=== PATIENT | male | born 1955 | race Caucasian/White ===

== ENCOUNTER 2020-03-15 20:21 | Emergency (ER) | payer SELFPAY ==
[~2020-03-15] VITALS: Ht 162.6 cm; Wt 82.0 kg
--- NOTE | 2020-03-15 20:29 | NUR ---
PATIENT STATED THAT HE HAS A HISTORY OF WOUND COMPLICATIONS INCLUDING MRSA, AND CELLULITIS. PATIENT HAS MULTIPLE BANDAIDS ON RIGHT AND LEG LEGS. AMBULATORY WITH STEADY GAIT TO ROOM.
[2020-03-15] MEDS ORDERED: PIPERACILLIN/TAZO/PMX 3.375GM 50 ML IV ONE (21:00)
[2020-03-15] MEDS ORDERED: SODIUM CHLORIDE 0.9% 1,000ML IVBOLUS ONE (21:00)
[2020-03-15] MEDS ORDERED: ONDANSETRON 2MG/ML, 2ML IVPush ONE (21:00)
[2020-03-15] MEDS ORDERED: VANCOMYCIN PER PHARMACY MC PRN (21:00)
[2020-03-15] MEDS ORDERED: PLEASE ENTER ALLERGIES MC SCH (21:00)
[2020-03-15] MEDS ORDERED: MORPHINE SULFATE 4 MG/ML, 1ML ONE ×2 (21:21→22:38)
[2020-03-15] MEDS ORDERED: ONDANSETRON 2MG/ML, 2ML ONE (21:21)
[2020-03-15] MEDS: MORPHINE SULFATE 4 MG/ML, 1ML IVPush PRN ×2 (21:25→22:52)
--- NOTE | 2020-03-15 21:38 | NUR ---
Pt medicated for pain. Anxious affect, family at bedside for reassurance. Fluids hanging. Lab at bedside for 2nd set of cultures.
[2020-03-15] MEDS ORDERED: PIPERACILLIN/TAZO/PMX 3.375GM 50 ML ONE (21:52)
--- NOTE | 2020-03-15 21:57 | NUR ---
BEDSIDE REPORT RECEIVED FROM ANGELIQUE BLAS. ASSUMED CARE OF PT. PT RESTING ON GURNEY, CONSTANTLY TOUCHING THE WOUND ON HIS LEG. PT ASKED TO STOP TOUCHING THE WOUND. NSR ON THE MONITOR. NO ECTOPY NOTED. ALL VITALS STABLE. PT DENIES ANY NEEDS AT THIS TIME
[2020-03-15 22:00] LABS: BASOPHILS # (AUTO) 0.05 x10^3/uL (0-0.1); BASOPHILS % (AUTO) 1 % (0-1); EOSINOPHILS # (AUTO) 0.37 x10^3/uL (0-0.4); EOSINOPHILS % (AUTO) 4 % (1-7); LYMPHOCYTES # (AUTO) 2.95 x10^3/uL (1-3.4); LYMPHOCYTES % (AUTO) 31 % (22-44); MD NO; MEAN CORPUSCULAR HEMOGLOBIN 31.3 pg (27.5-34.5); MEAN CORPUSCULAR VOLUME 94.8 fL (81-97); MEAN PLATELET VOLUME 8.1 fL (7.4-10.4); MONOCYTES # (AUTO) 0.65 x10^3/uL (0.2-0.8); MONOCYTES % (AUTO) 7 % (2-9); NEUTROPHILS # (AUTO) 5.57 x10^3/uL (1.8-6.8); NEUTROPHILS % (AUTO) 58 % (42-75); PLATELET COUNT 323 x10^3/uL (130-400); RED BLOOD COUNT 3.99 x10^6/uL (4.38-5.82); RED CELL DISTRIBUTION WIDTH 14.1 % (9.4-14.8)
[2020-03-15] MEDS ORDERED: VANCOMYCIN 1,600 MG in SODIUM CHLORIDE 0.9% 250 ML IV ONE (22:00)
--- NOTE | 2020-03-15 22:06 | NUR ---
PRECEPTING RN: REPORT TO ANGELIQUE CHURCHILL WHO ASSUMED CARE OF PT.
[2020-03-15 22:26] LABS: ALBUMIN 3.2 g/dL (3.4-5.0); ANION GAP 5 mmol/L (5-15); CALCIUM 9.1 mg/dL (8.5-10.1); CHLORIDE 109 mmol/L (98-107); CREATININE 0.94 mg/dL (0.7-1.3)
--- NOTE | 2020-03-15 22:33 | NUR ---
JAIME STARTED. PA AT BEDSIDE UPDATING PT ON POC. PT TO BE DISCHARGED AFTER ABX FINISHED. PT DENIES ANY NEEDS AT THIS TIME. WILL CONTINUE TO MONITOR
--- NOTE | 2020-03-15 22:52 | NUR ---
PT MEDICATED PER EMAR, FOR PAIN. 5 RIGHTS ADDRESSED.
[2020-03-15] MEDS ORDERED: DIPHENHYDRAMINE 25 MG CAPSULE ONE (23:30)
[2020-03-15 23:35] VITALS: BP 144/85
--- NOTE | 2020-03-15 23:35 | NUR ---
PT CONTINUALLY SCRATCHING OPEN WOUND AREA ON LOWER LEG. DISCUSSED THIS WITH DR. MAC. HE ORDERED BENEDRYL FOR THE ITCHING. PT MEDICATED PER EMAR. 5 RIGHTS ADDRESSED
[2020-03-15] MEDS ORDERED: NEOSPORIN OINT. PKT 1 PACKET ONE (23:41)
[2020-03-16] MEDS ORDERED: DIPHENHYDRAMINE 25 MG CAPSULE PO ONE
--- NOTE | 2020-03-16 00:51 | NUR ---
Patient/Caregiver given discharge instructions and they have confirmed that they understand the instructions. Patient ambulatory with steady gait.
== END 2020-03-16 00:53 | disposition home or self-care (01) ==
LOC: ED 03-16 00:23
DX: L03.115 Cellulitis of right lower limb (principal)
CPT/HCPCS: 36415; 73590; 80048; 82040; 83605; 84145; 85025; 87040; 93971; 96365; 96366; 96368; 96375; 96376; 99285; J2270; J2405; J2543; J3370; J7030; J7050; Q0163

== ENCOUNTER 2020-03-17 20:00 | Emergency (ER) | payer SELFPAY ==
[~2020-03-17] VITALS: Ht 175.3 cm; Wt 82.0 kg
[2020-03-17 20:11] VITALS: BP 140/86
--- NOTE | 2020-03-17 21:01 | NUR ---
PT INSISTANT ON BEING IN ROOM WITH GIRLFRIEND.
--- NOTE | 2020-03-17 21:15 | NUR ---
ERP AT BEDSIDE
[2020-03-17] MEDS ORDERED: SULFAMETH./TRIMETHOPRIM DS 800MG/160MG TABLET ONE (21:43)
[2020-03-17] MEDS ORDERED: CEFTRIAXONE 1,000 MG ONE (21:43)
--- NOTE | 2020-03-17 21:53 | NUR ---
PT MEDICATED PER MAR
[2020-03-17] MEDS ORDERED: SULFAMETH./TRIMETHOPRIM DS 800MG/160MG TABLET PO ONE (22:00)
[2020-03-17] MEDS ORDERED: CEFTRIAXONE 1,000 MG IM ONE (22:00)
== END 2020-03-17 23:09 | disposition home or self-care (01) ==
LOC: ED 22:43
DX: L03.116 Cellulitis of left lower limb (principal); F17.200 Nicotine dependence, unspecified, uncomplicated
CPT/HCPCS: 96372; 99283; J0696

== ENCOUNTER 2020-06-02 19:03 | Inpatient (IN) | payer MEDICAID ==
[~2020-06-02] VITALS: Ht 175.3 cm; Wt 81.4 kg
--- NOTE | 2020-06-02 19:20 | NUR ---
TASK RN: PT BIB [facility] FOR RIGHT LOWER EXTREMITY SWELLING AND DISCOLORATION STARTING 3-5 DAYS AGO. PT WAS ON ABX FROM FOR TREATMENT AFTER DC FROM HOSPITAL A FEW MONTHS AGO. PT STATES LESIONS ERUPTED SUDDENLY, DENIES TRAUMA, DIMINISHED PULSES. LEFT LOWER LEG IS SIGNIFICANTLY SWOLLEN WITH DISCOLORATION ON THE CALF, MULTIPLE LESIONS NOTED, PULSES DIMINISHED ON THAT SIDE. SENSATION INTACT ON LEFT SIDE. PT SPO2/BP MONITORING IN PLACE. WCJURGEN. HELENA JULIAN AT FOR EVAL AND POC.
[2020-06-02 19:29] LABS: BASOPHILS # (AUTO) 0.09 x10^3/uL (0-0.1); BASOPHILS % (AUTO) 1 % (0-1); EOSINOPHILS # (AUTO) 0.36 x10^3/uL (0-0.4); EOSINOPHILS % (AUTO) 3 % (1-7); LYMPHOCYTES % (AUTO) 33 % (22-44); MD NO; MEAN CORPUSCULAR HEMOGLOBIN 31.6 pg (27.5-34.5); MEAN CORPUSCULAR HGB CONC 33.5 g/dL (33.2-36.2); MEAN CORPUSCULAR VOLUME 94.1 fL (81-97); MEAN PLATELET VOLUME 7.3 fL (7.4-10.4); MONOCYTES # (AUTO) 0.73 x10^3/uL (0.2-0.8); MONOCYTES % (AUTO) 7 % (2-9); NEUTROPHILS # (AUTO) 6.23 x10^3/uL (1.8-6.8); NEUTROPHILS % (AUTO) 56 % (42-75); PLATELET COUNT 281 x10^3/uL (130-400); RED BLOOD COUNT 4.05 x10^6/uL (4.38-5.82); RED CELL DISTRIBUTION WIDTH 13.9 % (9.4-14.8)
[2020-06-02 19:42] LABS: ALANINE AMINOTRANSFERASE 21 U/L (12-78); ANION GAP 8 mmol/L (5-15); CHLORIDE 109 mmol/L (98-107)
[2020-06-02 19:45] LABS: ALKALINE PHOSPHATASE 96 U/L (45-117); BILIRUBIN,TOTAL 0.3 mg/dL (0.2-1.0)
[2020-06-02] MEDS ORDERED: CEFTRIAXONE PMX 1GM/50ML 50 ML ONE ×2 (20:19→20:34)
[2020-06-02] MEDS ORDERED: VANCOMYCIN PER PHARMACY MC ONE (20:30)
[2020-06-02] MEDS ORDERED: CEFTRIAXONE PMX 1GM/50ML 50 ML IV ONE (20:30)
[2020-06-02] MEDS ORDERED: VANCOMYCIN 2,000 MG in SODIUM CHLORIDE 0.9% 500 ML IV ONE (20:30)
--- NOTE | 2020-06-02 20:42 | NUR ---
ALANA RN: ATTEMPTED IV X2. UNABLE TO OBTAIN ACCESS. PT CURSING AND YELLING AT STAFF. REFUSING ANOTHER ATTEMPT AT THIS TIME. PRIMARY RN AWARE.
[2020-06-02] MEDS ORDERED: MORPHINE SULFATE 4 MG/ML, 1ML IVPush PRN ×2 (21:30→22:30)
[2020-06-02] MEDS ORDERED: ONDANSETRON 2MG/ML, 2ML IVPush ONE (21:30)
[2020-06-02] MEDS ORDERED: MORPHINE SULFATE 4 MG/ML, 1ML ONE (21:39)
[2020-06-02] MEDS ORDERED: ONDANSETRON 2MG/ML, 2ML ONE (21:39)
--- NOTE | 2020-06-02 22:10 | NUR ---
PATIENT UPDATED ON PLAN OF CARE. VITAL SIGNS STABLE. NO NOTED NEEDS AT THIS TIME. PATIENT GIVEN WARM BLANKETS.
[2020-06-02] MEDS ORDERED: ONDANSETRON 2MG/ML, 2ML IVPush PRN ×2 (22:30→23:30)
[2020-06-02] MEDS ORDERED: ACETAMINOPHEN 325 MG TABLET PO PRN (23:30)
[2020-06-02] MEDS ORDERED: VANCOMYCIN PER PHARMACY MC PRN (23:30)
[2020-06-02] MEDS ORDERED: GABAPENTIN 300 MG CAPSULE PO PRN (23:30)
[2020-06-02] MEDS ORDERED: TRAZODONE 50MG TABLET PO PRN (23:30)
[2020-06-02] MEDS ORDERED: PROMETHAZINE 25 MG/ML, 1ML IM PRN (23:30)
[2020-06-02] MEDS ORDERED: hydrALAzine 20 MG/ML, 1ML IVPush PRN (23:30)
[2020-06-02 23:54] VITALS: BP 124/81
[2020-06-03] MEDS: ENOXAPARIN 40 MG/0.4 ML SQ SCH ×2 (00:22→21:28)
[2020-06-03] MEDS ORDERED: PHARMACOKINETIC CONSULTATION MC ONE (00:30)
[2020-06-03] MEDS ORDERED: PHARMACOKINETIC MONITORING MC PRN (00:30)
[2020-06-03] MEDS: morphine SULFATE 10 MG/ML, 1ML IVPush PRN ×5 (00:42→20:29)
[2020-06-03 01:06] VITALS: BP 120/77
[2020-06-03] MEDS: POTASSIUM CHLORIDE 20 MEQ, MAGNESIUM SULFATE 2 GM, THIAMINE 200 MG, MVI ADULT 10 ML, FO... IV SCH ×2 (01:20→20:29)
[2020-06-03 06:35] LABS: AMPHETAMINE SCREEN, URINE Positive (Negative); BARBITURATE SCREEN, URINE Negative (Negative); BENZODIAZEPINE SCREEN, URINE Negative (Negative); CANNABINOID SCREEN, URINE Positive (Negative); COCAINE SCREEN, URINE Negative (Negative); METHADONE SCREEN, URINE Negative (Negative); OPIATE SCREEN, URINE Positive (Negative)
[2020-06-03 06:43] LABS: BASOPHILS # (AUTO) 0.05 x10^3/uL (0-0.1); BASOPHILS % (AUTO) 1 % (0-1); EOSINOPHILS # (AUTO) 0.42 x10^3/uL (0-0.4); EOSINOPHILS % (AUTO) 5 % (1-7); LYMPHOCYTES # (AUTO) 2.79 x10^3/uL (1-3.4); LYMPHOCYTES % (AUTO) 32 % (22-44); MD NO; MEAN CORPUSCULAR HEMOGLOBIN 31.5 pg (27.5-34.5); MEAN CORPUSCULAR HGB CONC 33.4 g/dL (33.2-36.2); MEAN CORPUSCULAR VOLUME 94.1 fL (81-97); MEAN PLATELET VOLUME 7.6 fL (7.4-10.4); MONOCYTES # (AUTO) 0.63 x10^3/uL (0.2-0.8); MONOCYTES % (AUTO) 7 % (2-9); NEUTROPHILS # (AUTO) 4.86 x10^3/uL (1.8-6.8); NEUTROPHILS % (AUTO) 56 % (42-75); PLATELET COUNT 243 x10^3/uL (130-400); RED BLOOD COUNT 4.06 x10^6/uL (4.38-5.82); RED CELL DISTRIBUTION WIDTH 14.2 % (9.4-14.8)
[2020-06-03 06:49] LABS: ANION GAP 6 mmol/L (5-15); CALCIUM 8.2 mg/dL (8.5-10.1); CHLORIDE 113 mmol/L (98-107)
[2020-06-03 06:54] LABS: CHOL/HDL RATIO 4.5; CHOLESTEROL, TOTAL 118 mg/dL (140-239); CREATININE 0.78 mg/dL (0.7-1.3); HDL CHOL % 22 % (26-37); HDL CHOLESTEROL (DIRECT) 26 mg/dL (40-60); LDL CHOLESTEROL,CALCULATED 74 mg/dL (54-169); LDL/HDL RATIO 2.8 (0.5-3.0); TRIGLYCERIDES 92 mg/dL (50-200); VLDL CHOLESTEROL 18 mg/dL (0-25)
[2020-06-03 07:42] VITALS: BP 133/86
[2020-06-03] MEDS: INSULIN LISPRO 100 UNITS/ML, PEN SQ-INSULIN SCH ×3 (11:00→20:56)
[2020-06-03 15:20] VITALS: BP 147/87
[2020-06-03] MEDS: VANCOMYCIN 1,500 MG in SODIUM CHLORIDE 0.9% 250 ML IV SCH (16:43)
[2020-06-03] MEDS: MUPIROCIN OINT 2%, 22GM TP SCH (17:13)
[2020-06-03 20:36] VITALS: BP 137/77
[2020-06-03] MEDS: CEFTRIAXONE PMX 1GM/50ML 50 ML IV SCH (21:28)
[2020-06-04 02:35] VITALS: BP 124/79
[2020-06-04 05:57] LABS: BASOPHILS # (AUTO) 0.04 x10^3/uL (0-0.1); BASOPHILS % (AUTO) 1 % (0-1); EOSINOPHILS # (AUTO) 0.34 x10^3/uL (0-0.4); EOSINOPHILS % (AUTO) 4 % (1-7); LYMPHOCYTES # (AUTO) 2.88 x10^3/uL (1-3.4); LYMPHOCYTES % (AUTO) 37 % (22-44); MD NO; MEAN CORPUSCULAR HEMOGLOBIN 31.1 pg (27.5-34.5); MEAN CORPUSCULAR HGB CONC 32.6 g/dL (33.2-36.2); MEAN CORPUSCULAR VOLUME 95.4 fL (81-97); MEAN PLATELET VOLUME 7.4 fL (7.4-10.4); MONOCYTES # (AUTO) 0.43 x10^3/uL (0.2-0.8); MONOCYTES % (AUTO) 6 % (2-9); NEUTROPHILS # (AUTO) 4.15 x10^3/uL (1.8-6.8); NEUTROPHILS % (AUTO) 53 % (42-75); PLATELET COUNT 245 x10^3/uL (130-400); RED BLOOD COUNT 3.88 x10^6/uL (4.38-5.82); RED CELL DISTRIBUTION WIDTH 13.9 % (9.4-14.8)
[2020-06-04] MEDS: MUPIROCIN OINT 2%, 22GM TP SCH ×2 (06:01→17:53)
[2020-06-04] MEDS: morphine SULFATE 10 MG/ML, 1ML IVPush PRN ×5 (06:09→21:09)
[2020-06-04 06:16] LABS: ANION GAP 6 mmol/L (5-15); CALCIUM 7.7 mg/dL (8.5-10.1); CHLORIDE 112 mmol/L (98-107); CREATININE 0.74 mg/dL (0.7-1.3)
[2020-06-04 06:42] VITALS: BP 121/78
[2020-06-04] MEDS: INSULIN LISPRO 100 UNITS/ML, PEN SQ-INSULIN SCH ×2 (07:00→11:00)
[2020-06-04] MEDS: VANCOMYCIN 1,500 MG in SODIUM CHLORIDE 0.9% 250 ML IV SCH (10:15)
[2020-06-04 12:29] VITALS: BP 137/86
[2020-06-04] MEDS: ENOXAPARIN 40 MG/0.4 ML SQ SCH (21:09)
[2020-06-04] MEDS: CEFTRIAXONE PMX 1GM/50ML 50 ML IV SCH (21:09)
[2020-06-04 21:15] VITALS: BP 123/75
[2020-06-05 02:16] VITALS: BP 130/80
[2020-06-05] MEDS: VANCOMYCIN 1,500 MG in SODIUM CHLORIDE 0.9% 250 ML IV SCH ×2 (03:52→16:08)
[2020-06-05] MEDS: MUPIROCIN OINT 2%, 22GM TP SCH ×2 (04:23→16:08)
[2020-06-05 06:38] VITALS: BP 138/83
[2020-06-05] MEDS: morphine SULFATE 10 MG/ML, 1ML IVPush PRN ×5 (08:32→23:42)
[2020-06-05] MEDS ORDERED: BISACODYL 10 MG SUPP PR PRN (10:30)
[2020-06-05] MEDS: POLYETHYLENE GLYCOL 17 GM PACKET NG SCH (10:39)
[2020-06-05] MEDS: SENNOSIDES 8.6 MG TABLET PO SCH ×2 (12:28→19:53)
[2020-06-05 12:58] VITALS: BP 133/82
[2020-06-05 19:48] VITALS: BP 131/75
[2020-06-05] MEDS: CEFTRIAXONE PMX 1GM/50ML 50 ML IV SCH (23:30)
[2020-06-05] MEDS: ENOXAPARIN 40 MG/0.4 ML SQ SCH (23:31)
[2020-06-06 00:14] VITALS: BP 138/83
[2020-06-06] MEDS: VANCOMYCIN 1,500 MG in SODIUM CHLORIDE 0.9% 250 ML IV SCH ×2 (04:01→16:48)
[2020-06-06] MEDS: morphine SULFATE 10 MG/ML, 1ML IVPush PRN (05:57)
[2020-06-06] MEDS: MUPIROCIN OINT 2%, 22GM TP SCH ×2 (05:57→16:57)
[2020-06-06 07:08] VITALS: BP 147/78
[2020-06-06] MEDS: POLYETHYLENE GLYCOL 17 GM PACKET NG SCH (08:05)
[2020-06-06] MEDS: SENNOSIDES 8.6 MG TABLET PO SCH ×2 (08:05→20:15)
[2020-06-06] MEDS: OXYcodone IR 5MG TABLET PO PRN ×3 (13:20→22:59)
[2020-06-06] MEDS: BISACODYL 10 MG SUPP PR PRN (14:26)
[2020-06-06] MEDS: ESCITALOPRAM 10MG TABLET PO SCH (16:57)
[2020-06-06 19:47] VITALS: BP 129/82
[2020-06-06] MEDS: CEFTRIAXONE PMX 1GM/50ML 50 ML IV SCH (23:00)
[2020-06-06] MEDS: ENOXAPARIN 40 MG/0.4 ML SQ SCH (23:00)
[2020-06-07 03:50] VITALS: BP 124/75
[2020-06-07] MEDS: VANCOMYCIN 1,500 MG in SODIUM CHLORIDE 0.9% 250 ML IV SCH (04:25)
[2020-06-07] MEDS: MUPIROCIN OINT 2%, 22GM TP SCH ×2 (04:25→16:42)
[2020-06-07] MEDS: OXYcodone IR 5MG TABLET PO PRN ×4 (04:33→23:16)
[2020-06-07 06:35] VITALS: BP 135/75
[2020-06-07] MEDS: POLYETHYLENE GLYCOL 17 GM PACKET NG SCH (07:52)
[2020-06-07] MEDS: SENNOSIDES 8.6 MG TABLET PO SCH ×2 (07:52→21:00)
[2020-06-07] MEDS: ESCITALOPRAM 10MG TABLET PO SCH ×2 (07:52→09:38)
[2020-06-07 12:52] VITALS: BP 121/79
[2020-06-07 18:56] VITALS: BP 111/72
[2020-06-07] MEDS ORDERED: CLIN300C8 PO (21:51)
[2020-06-07] MEDS ORDERED: ESCI10TA PO (21:51)
[2020-06-07] MEDS ORDERED: LACT1CAP11 PO (21:51)
[2020-06-07] MEDS ORDERED: AMOX1TAB64 PO (21:51)
[2020-06-07] MEDS: ENOXAPARIN 40 MG/0.4 ML SQ SCH (23:06)
[2020-06-07] MEDS: CEFTRIAXONE PMX 1GM/50ML 50 ML IV SCH (23:06)
[2020-06-08 00:25] VITALS: BP 119/75
[2020-06-08] MEDS: MUPIROCIN OINT 2%, 22GM TP SCH (05:21)
[2020-06-08] MEDS: OXYcodone IR 5MG TABLET PO PRN ×2 (05:25→12:21)
[2020-06-08 07:10] VITALS: BP 106/67
[2020-06-08] MEDS: ESCITALOPRAM 10MG TABLET PO SCH (09:03)
[2020-06-08] MEDS: SENNOSIDES 8.6 MG TABLET PO SCH (09:03)
[2020-06-08] MEDS: POLYETHYLENE GLYCOL 17 GM PACKET NG SCH (09:03)
[2020-06-08] MEDS ORDERED: OXYC5TAB3 PO (10:58)
[2020-06-08] MEDS: BISACODYL 10 MG SUPP PR PRN (12:05)
== END 2020-06-08 15:00 | disposition home or self-care (01) | DRG 383 ==
LOC: ED 21:23 → EDIP 22:45 → 3N 23:51
PROVIDERS: ADMIT Family Medicine; ATTEND Internal Medicine
DX: L03.116 Cellulitis of left lower limb (principal); D64.9 Anemia, unspecified; E11.9 Type 2 diabetes mellitus without complications; F02.80 Dementia in other diseases classified elsewhere, unspecified severity, without behavioral disturbance, psychotic disturbance, mood disturbance, and anxiety; F10.10 Alcohol abuse, uncomplicated; F12.10 Cannabis abuse, uncomplicated; F15.20 Other stimulant dependence, uncomplicated; F17.210 Nicotine dependence, cigarettes, uncomplicated; F33.1 Major depressive disorder, recurrent, moderate; F41.9 Anxiety disorder, unspecified; G20 Parkinson's disease; G30.9 Alzheimer's disease, unspecified; I25.2 Old myocardial infarction; Z86.14 Personal history of Methicillin resistant Staphylococcus aureus infection; Z86.73 Personal history of transient ischemic attack (TIA), and cerebral infarction without residual deficits; Z91.14 Patient's other noncompliance with medication regimen; Z79.899 Other long term (current) drug therapy
CPT/HCPCS: 36415; 80048; 80053; 80061; 80202; 80307; 82962; 83036; 83605; 83735; 83880; 84145; 85025; 87040; 87806; 93306; G0378; J0696; J1650; J3370; J3411; J3475; J3480; J7042; G0475; J1815; J2270; J7040; J7050

== ENCOUNTER 2020-12-28 23:04 | Inpatient (IN) | payer MEDICAID ==
[~2020-12-28] VITALS: Ht 175.3 cm; Wt 85.0 kg
[~2020-12-28 23:04] MED LIST: AMOX1TAB64 PO; CLIN300C9 PO; ESCI10TA97 PO; LACT1CAP11 PO; OXYC5TAB98 PO
[2020-12-28] MEDS ORDERED: PROPARACAINE OPHTH 0.5%, 15ML ONE (23:20)
[2020-12-28] MEDS ORDERED: FLUORESCEIN OPHTHALMIC 1 MG STRIP ONE (23:20)
[2020-12-28] MEDS ORDERED: PROPARACAINE OPHTH 0.5%, 15ML LEFTEYE ONE (23:30)
[2020-12-28] MEDS ORDERED: FLUORESCEIN OPHTHALMIC 1 MG STRIP LEFTEYE ONE (23:30)
[2020-12-29] MEDS ORDERED: LATANOPROST OPHTH 0.005%, 2.5ML LEFTEYE ONE (01:27)
[2020-12-29] MEDS ORDERED: NEO/POLYMYX B/DEXA OPHTH OINT, 3.5GM LEFTEYE ONE (01:27)
[2020-12-29] MEDS ORDERED: DORZOLAMIDE OPHTH 2%, 10ML LEFTEYE ONE (01:27)
[2020-12-29] MEDS ORDERED: TIMOLOL OPHTH 0.5%, 5ML LEFTEYE ONE (01:28)
[2020-12-29] MEDS ORDERED: ONDANSETRON 2MG/ML, 2ML IVPush PRN (01:30)
[2020-12-29] MEDS ORDERED: AcetaZOLAMIDE INJ 500 MG IVPush ONE (01:30)
[2020-12-29] MEDS ORDERED: MORPHINE SULFATE 4 MG/ML, 1ML IVPush PRN (01:30)
[2020-12-29] MEDS ORDERED: ONDANSETRON 2MG/ML, 2ML ONE (01:52)
[2020-12-29 01:53] LABS: ALBUMIN 3.7 g/dL (3.4-5.0); ANION GAP 6 mmol/L (5-15); CALCIUM 8.9 mg/dL (8.5-10.1); CHLORIDE 111 mmol/L (98-107); CREATININE 0.98 mg/dL (0.7-1.3)
[2020-12-29] MEDS ORDERED: MORPHINE SULFATE 4 MG/ML, 1ML ONE (02:09)
[2020-12-29 02:12] LABS: BASOPHILS % (AUTO) 1 % (0-1); EOSINOPHILS % (AUTO) 3 % (1-7); LYMPHOCYTES % (AUTO) 24 % (22-44); MEAN CORPUSCULAR HGB CONC 34.1 g/dL (33.2-36.2); MEAN PLATELET VOLUME 7.5 fL (7.4-10.4); MONOCYTES % (AUTO) 6 % (2-9); NEUTROPHILS % (AUTO) 67 % (42-75); PLATELET COUNT 284 x10^3/uL (130-400); RED CELL DISTRIBUTION WIDTH 14.6 % (9.4-14.8)
[2020-12-29 02:18] LABS: MD NO
[2020-12-29 02:30] VITALS: BP 149/94
[2020-12-29 02:45] VITALS: BP 149/94
[2020-12-29] MEDS: BRIMONIDINE TART. OPHTH 0.2%, 5ML LEFTEYE SCH ×4 (06:01→21:30)
[2020-12-29] MEDS: TIMOLOL OPHTH 0.5%, 5ML LEFTEYE SCH ×4 (06:03→21:29)
[2020-12-29] MEDS: DORZOLAMIDE OPHTH 2%, 10ML LEFTEYE SCH ×4 (06:03→21:30)
[2020-12-29 07:33] VITALS: BP 152/87
[2020-12-29] MEDS: morphine SULFATE 10 MG/ML, 1ML IV PRN ×3 (10:02→21:28)
[2020-12-29] MEDS: NEO/POLYMYX B/DEXA OPHTH OINT, 3.5GM LEFTEYE SCH ×2 (11:39→21:29)
[2020-12-29 13:33] VITALS: BP 164/89
[2020-12-29 19:50] VITALS: BP 147/87
[2020-12-29] MEDS ORDERED: LATANOPROST OPHTH 0.005%, 2.5ML LEFTEYE SCH (21:00)
[2020-12-30] MEDS: morphine SULFATE 10 MG/ML, 1ML IV PRN ×3 (00:37→08:47)
[2020-12-30 01:46] VITALS: BP 136/82
[2020-12-30] MEDS: BRIMONIDINE TART. OPHTH 0.2%, 5ML LEFTEYE SCH (05:04)
[2020-12-30] MEDS: DORZOLAMIDE OPHTH 2%, 10ML LEFTEYE SCH (05:04)
[2020-12-30] MEDS: TIMOLOL OPHTH 0.5%, 5ML LEFTEYE SCH (05:05)
[2020-12-30 07:46] VITALS: BP 151/87
[2020-12-30] MEDS ORDERED: TIMO5DRO5 LEFTEYE (07:52)
[2020-12-30] MEDS ORDERED: BRIM5DRO4 LEFTEYE (07:52)
[2020-12-30] MEDS ORDERED: LATA2.5D4 LEFTEYE (07:52)
[2020-12-30] MEDS ORDERED: NETA2.5D LEFTEYE (07:52)
[2020-12-30] MEDS ORDERED: DORZ10DR26 LEFTEYE (07:52)
[2020-12-30] MEDS ORDERED: NEO/3.5O7 LEFTEYE (07:52)
[2020-12-30] MEDS ORDERED: ACET250T2 PO (07:52)
[2020-12-30] MEDS ORDERED: TRAM50TA2 PO (07:54)
[2020-12-30] MEDS: NEO/POLYMYX B/DEXA OPHTH OINT, 3.5GM LEFTEYE SCH (08:48)
== END 2020-12-30 10:08 | disposition home or self-care (01) | DRG 82 ==
LOC: ED 12-29 01:30 → EDIP 12-29 01:59 → 3N 12-29 02:27
PROVIDERS: ADMIT Family Medicine; ATTEND Family Medicine
DX: H40.212 Acute angle-closure glaucoma, left eye (principal); E11.9 Type 2 diabetes mellitus without complications; F15.10 Other stimulant abuse, uncomplicated; F17.200 Nicotine dependence, unspecified, uncomplicated; H54.7 Unspecified visual loss; H53.8 Other visual disturbances; H57.12 Ocular pain, left eye; Z96.611 Presence of right artificial shoulder joint; I25.2 Old myocardial infarction; Z86.73 Personal history of transient ischemic attack (TIA), and cerebral infarction without residual deficits; Z91.19 Patient's noncompliance with other medical treatment and regimen; Z71.6 Tobacco abuse counseling
CPT/HCPCS: 36415; 80048; 82040; 85025; 96374; 96375; 99291; G0378; J2405; J1120; J2270